=== PATIENT | male | born 1975 | race Hispanic/Latino ===

== ENCOUNTER 2018-12-20 23:34 | Emergency (ER) | payer BC, MEDICARE, OTHER ==
[2018-12-21] MEDS ORDERED: CEFTRIAXONE SODIUM 1 GM ONE (00:43)
[2018-12-21] MEDS ORDERED: HYDROCODONE/ACETAMINOPHEN 5/325 MG TAB ONE (00:43)
[2018-12-21] MEDS ORDERED: LIDOCAINE HCL-MPF 1% 2ML VIAL ONE (00:43)
== END 2018-12-21 00:51 | disposition home or self-care (01) ==
LOC: EDH 23:34
DX: L03.312 Cellulitis of back [any part except buttock and flank] (principal); J45.909 Unspecified asthma, uncomplicated; N40.0 Benign prostatic hyperplasia without lower urinary tract symptoms; Z98.890 Other specified postprocedural states
CPT/HCPCS: 96372; 99283; J0696; J3490

== ENCOUNTER 2022-02-13 09:14 | Emergency (ER) | payer MEDICARE ==
[~2022-02-13] VITALS: Ht 172.7 cm; Wt 97.1 kg
[2022-02-13] MEDS ORDERED: DEXAMETHASONE SOD PHOSPHATE 4 MG/ML 1ML VIAL IM ONE (10:00)
[2022-02-13] MEDS ORDERED: NIRM1TAB PO (10:19)
[2022-02-13] MEDS ORDERED: ALBU1.252 IH (10:30)
[2022-02-13 10:39] VITALS: BP 128/79
== END 2022-02-13 10:23 | disposition home or self-care (01) ==
LOC: EDH 09:14
DX: U07.1 COVID-19 (principal); J45.909 Unspecified asthma, uncomplicated; Z79.52 Long term (current) use of systemic steroids
CPT/HCPCS: 71045; 87635; 87804 ×2; 87880; 96372; 99284; C9803; J1100

== ENCOUNTER 2025-03-14 07:31 | Day surgery (SDC) | payer OTHER ==
[2025-03-12 09:12] LABS: IMMATURE GRANULOCYTE ABSOLUTE 0.02 K/uL (0-1); NUCLEATED RED BLOOD CELLS 0.0 % (0.0-0.19); PLATELET COUNT (AUTO) 193 K/uL (130-400); RED BLOOD CELL COUNT(AUTO) 5.25 MIL/uL (4.50-6.20); RED CELL DISTRIBUTION WIDTH 12.2 % (11.0-15.5); WHITE BLOOD COUNT (AUTO) 4.6 K/uL (4.8-10.8)
[2025-03-12 09:22] LABS: INR 1.02 (0.85-1.15)
[2025-03-12 09:41] VITALS: BP 119/75; PULSE 69; RESP 18; TEMP 98.4
[2025-03-12 09:50] LABS: CREATININE 0.8 mg/dL (0.5-1.3); GLOMERULAR FILTR. RATE CALC 110.0 mL/min (>90); GLUCOSE,RANDOM 105.0 mg/dL (70-105); SODIUM SERUM 143.0 mmol/L (136-145); UREA NITROGEN, BLOOD 10.0 mg/dL (7-18)
[2025-03-14] VITALS (13 sets, daily range): BP systolic 98–127; BP diastolic 49–87; PULSE 63–77; RESP 15–18; TEMP 97.4–98
[~2025-03-14] VITALS: Ht 172.7 cm; Wt 95.4 kg
[2025-03-14] MEDS: LACTATED RINGERS 1000ML 1,000 ML IV ONE (08:52)
[2025-03-14] MEDS ORDERED: LIDOCAINE PF 100MG/5ML (2%) SYRINGE 5ML ONE (09:02)
[2025-03-14] MEDS ORDERED: MIDAZOLAM HCL 1 MG/ML 2ML VIAL ONE (09:02)
[2025-03-14] MEDS ORDERED: ACET-2079 PO (12:12)
--- NOTE | 2025-03-14 13:06 | OP ---
Operative Note: DATE OF PROCEDURE: 03/14/25 SURGEON: ROSEY FELIZ MD CASINO BEVERAGE SERVER: Mazin Day ANESTHESIA: General ANESTHESIOLOGIST/SOFTWARE DEVELOPMENT LEADER: Raul Guillen PREOPERATIVE DIAGNOSIS: Right knee medial meniscal tear POSTOPERATIVE DIAGNOSIS: Right knee medial meniscal tear FINDINGS: On inserting the arthroscope in the knee we noted there to be a some mild grade 2 chondromalacia on the lateral facet of the patella. Healthy medial facet cartilage with minimal suprapatellar plica. The lateral tracking of the patella. Lateral gutter with no loose bodies. Lateral compartment with pristine articular cartilage and minimal fraying of the edge of the body of the meniscus. ACL with notch intact. Medial compartment with some grade 2-3 chondromalacia on the tibial plateau. Mild grade 1 on the femoral condyle. Complex tear of the posterior horn and body of the medial meniscus with a large fragment tucked into the medial gutter of the body. Medial gutter with no loose bodies. PROCEDURE: Right knee arthroscopy with partial medial meniscectomy ESTIMATED BLOOD LOSS: 2 cc INDICATIONS: 49-year-old male status post on-the-job injury when stepping and twisting wrong getting out of a vehicle. Patient has sustained an injury to his right knee and continued with locking clicking and mechanical symptoms. Presented to our clinic for concerns of pain in that knee and was found on MRI to have a posterior horn and body tear in the medial meniscus with healthy- appearing articular cartilage. After discussion of the risks, benefits, and alternatives, the patient voluntarily agreed to undergo the aforementioned proce dure. DESCRIPTION OF PROCEDURE: Patient was properly identified in the preoperative holding area. Surgical site marking was verified and surgery consent reviewed. The patient was then taken to the operating room and placed in supine position on the OR table. After induction of general anesthesia, preoperative antibiotics were given, all bony prominences were well-padded, and a well padded tourniquet was applied but not inflated at this time. The right lower extremity was then prepped and draped in usual sterile fashion. Surgical timeout was done verifying correct surgery, side, site, and location to be performed. We then began the procedure by making a standard anterolateral portal with an 11 blade and inserted our arthroscope through here. We made our anterior medial portal under direct visualization using spinal needle for localization. We then inserted our probe and performed our diagnostic arthroscopy with the above mentioned findings. At this point we inserted our meniscal biters and performed our medial meniscal debridement. We then inserted the shaver and further debrided the medial meniscus along the tear removing the large free flap with the midportion of the body and near the posterior root. Once we were happy with our debridement, we then thoroughly irrigated out the wound with normal saline. We removed as much fluid from the knee as possible. We then injected local anesthetic within the capsule of the joint as well as around the portal sites. Our portal sites were then repaired using 3-0 nylon in simple fashion. Sterile dressing was then applied consisting of Xeroform, 4 x 4's, ABD, cast padding, and an Terrence wrap. The patient was then awakened from anesthesia and taken to recovery room in stable condition. ROSEY FELIZ MD Mar 14, 2025 13:06
== END 2025-03-14 14:55 | disposition home or self-care (01) ==
LOC: DAH 07:31
PROVIDERS: ATTEND Student in an Organized Health Care Education/Training Program
DX: S83.231A Complex tear of medial meniscus, current injury, right knee, initial encounter (principal); M67.51 Plica syndrome, right knee; M23.90 Unspecified internal derangement of unspecified knee; M22.41 Chondromalacia patellae, right knee; F41.9 Anxiety disorder, unspecified; Z90.89 Acquired absence of other organs; Z79.01 Long term (current) use of anticoagulants; X50.1XXA Overexertion from prolonged static or awkward postures, initial encounter; Y93.89 Activity, other specified; Y92.89 Other specified places as the place of occurrence of the external cause; Z79.899 Other long term (current) drug therapy; Y99.0 Civilian activity done for income or pay
CPT/HCPCS: 80048; 85025; 85610; 85730; 36415; 29881; J1885; A4663; A4649 ×3; J7120; J3010 ×2; J1100 ×2; J2270; J0665; J2003; J2250; J2704; J2405 ×2; J3490; J0690; A6223; A4930 ×2; A4215; A4213; A4222; A4221; A4216; A6450; A4223 ×2